=== PATIENT | male | born 2000 | race Caucasian/White ===

== ENCOUNTER 2019-04-13 19:04 | Emergency (ER) | payer OTHER ==
[2019-04-13 19:31] VITALS: BP 132/63
[2019-04-13] MEDS ORDERED: Cephalexin CAP* 500 MG PO ONE ×2 (19:49→20:27)
[2019-04-13] MEDS ORDERED: Lidocaine 1% MPF ** 5 ML VIAL INJ ONE (19:49)
--- NOTE | 2019-04-13 20:35 | UC ---
Hand/Wrist HPI - HPI Summary HPI Summary: 19-year-old male comes with a chief complaint of an injury to his right fifth finger. Just prior to arrival he accidentally dropped some weights on the tip of the right fifth finger. Has a laceration and it was wrapped by his corporate trainer. Reports is up-to-date with tetanus. Patient reports he has full range of motion and sensation of the finger. - History Of Current Complaint Chief Complaint: UCUpperExtremity Stated Complaint: FINGER LAC Time Seen by Provider: 04/13/19 19:44 Pain Intensity: 5 - Allergies/Home Medications Allergies/Adverse Reactions: Allergies Allergy/AdvReac Type Severity Reaction Status Date / Time No Known Allergies Allergy Verified 04/13/19 19:30 PMH/Surg Hx/FS Hx/Imm Hx Previously Healthy: Yes - Surgical History Surgical History: None - Family History Known Family History: Positive: Non-Contributory - Social History Alcohol Use: None Substance Use Type: None Smoking Status (MU): Never Smoked Tobacco Review of Systems All Other Systems Reviewed And Are Negative: Yes Constitutional: Positive: Negative Skin: Positive: Other - SEE HPI Eyes: Positive: Negative ENT: Positive: Negative Respiratory: Positive: Negative Cardiovascular: Positive: Negative Gastrointestinal: Positive: Negative Motor: Positive: Negative Neurovascular: Positive: Negative Musculoskeletal: Positive: Negative Neurological/Mental Status: Positive: Negative Psychological: Positive: Negative Is Patient Immunocompromised?: No Physical Exam Triage Information Reviewed: Yes Appearance: Well-Appearing, No Pain Distress, Well-Nourished Vital Signs: Initial Vital Signs Temp 97.9 F 04/13/19 19:25 Pulse 70 04/13/19 19:25 Resp 16 04/13/19 19:25 BP 132/63 04/13/19 19:25 Pulse Ox 100 04/13/19 19:25 Vital Signs Reviewed: Yes Eye Exam: Normal Eyes: Positive: Conjunctiva Clear Neck: Positive: Supple Respiratory: Positive: No respiratory distress Musculoskeletal: Positive: Strength Intact, ROM Intact Neurological: Positive: Alert Psychological: Positive: Age Appropriate Behavior Skin: Positive: Other - Right fifth finger has stellate laceration that does include the fingernail. Fingernails intact in the base of the fingernail is intact. Overall laceration length is approximately 2 cm. It does appear that there is some missing tissue on the very tip of the finger. Normal capillary refill normal sensation finger has full range of motion full-strength. Procedures - Laceration/Wound Repair 1 Location: Other - right fifth finger Description: Stellate - 2 cm in length Anesthesia: 1.0%, Lido Length, Depth and Shape: Irrigated with saline by nursing. Betadine Prep?: No Laceration/Wound Explored: clean Closure: Single Layer - #6 sutures Debridement: none Suture Type: Prolene - 5-0 Hand/Wrist Course/Dx - Course Course Of Treatment: With the injury being a stellate laceration with some missing tissue on the tip I placed 6 sutures to help bring together most of the laceration however there is still an area of the tip that was missing skin. Antibiotic ointment and nonstick dressing was placed by nursing. Patient was given Keflex 500 mg by mouth here in clinic and then we'll have him on Keflex 500 g by mouth 3 times a day. He can call the orthopedic hand specialist tomorrow morning to arrange follow-up with the next 1-2 days. Patient reports is up-to-date on his tetanus. - Differential Dx/Diagnosis Provider Diagnosis: Open fracture of tuft of distal phalanx of finger, Laceration of right little finger with damage to nail Discharge ED - Sign-Out/Discharge Documenting (check all that apply): Patient Departure All imaging exams completed and their final reports reviewed: No - Discharge Plan Condition: Stable Disposition: HOME Prescriptions: Cephalexin CAP* [Keflex CAP*] 500 mg PO TID #28 cap Patient Education Materials: Finger Fracture (ED), Finger Laceration (ED) Referrals: Abdiel Abraham MD [Medical Doctor] - Additional Instructions: FOLLOW UP WITH THE ORTHOPEDIC HAND SPECIALIST. CALL TOMORROW TO ARRANGE FOLLOW UP IN THE NEXT 1-2 DAYS FOR THE OPEN TUFF FRACTURE OF YOUR RIGHT FIFTH FINGER. SUTURES OUT 8-10 DAYS, ORTHOPEDICS WILL DETERMINE THE ACTUAL TIME TO REMOVE THE SUTURES. GET REEVALUATED SOONER IF NOT IMPROVED OR WORSE; SIGNS OF INFECTION OR ANY QUESTIONS OR CONCERNS. - Billing Disposition and Condition Condition: STABLE Disposition: Home
--- NOTE | 2019-04-14 07:28 | UC ---
- Progress Note Progress Note: Patient Name: YADIEL POSADAS Medical Record#: [id number] Ordering Physician: Phi TANG Acct.#: [id number] : 2000 Age: 19 Sex: M Location: [facility] Exam Date: 04/13/191931 ADM Status: DEP ER Order Information: FINGER RIGHT SMALL Accession Number: [id number] CPT: 62832 INDICATION: Crush injury distal phalanx right fifth finger. TECHNIQUE: 3 views of the right fifth finger were obtained. FINDINGS: There is soft tissue swelling and a soft tissue defect adjacent to the distal phalanx. There is a fracture of the tuft of the distal phalanx with slight distraction of 2 small fracture fragments. Joint spaces appear maintained. IMPRESSION: SOFT TISSUE INJURY AND SLIGHTLY DISPLACED FRACTURE OF THE TUFT OF THE DISTAL PHALANX. R0 Preliminary Imaging Read R0 <Electronically signed by Rolf Emanuel MD in OV> 04/14/19704 Dictated By: Rolf Emanuel MD Dictated Date/Time: 04/14/19703 Transcribed Date/Time: 04/14/19703 Copy to: CC:No Primary Care Phys,NOPCP ; Phi TANG; Yadiel Ware MD Imaging - [facility] Imaging - [facility] [address] [place] [address] ph ([phone]) ph ([phone]) ph ([phone]) This report is only to be considered final once signed by the Provider(s) as displayed in the "<Electronically Signed by >" field (s). Absence of a signature indicates the report is in a draft status and still needs to be finalized. In the event this document was created by someone other than the signing Provider, the individual initiating the document will be listed in the "Entered by:" or "Dictated by:" peters. 1 of 1 No change Course/Dx - Diagnoses Provider Diagnoses: Open fracture of tuft of distal phalanx of finger, Laceration of right little finger with damage to nail Discharge ED - Sign-Out/Discharge Documenting (check all that apply): Post-Discharge Follow Up All imaging exams completed and their final reports reviewed: Yes - Discharge Plan Condition: Stable Disposition: HOME Prescriptions: Cephalexin CAP* [Keflex CAP*] 500 mg PO TID #28 cap Patient Education Materials: Finger Fracture (ED), Finger Laceration (ED) Referrals: Abdiel Abraham MD [Medical Doctor] - Additional Instructions: FOLLOW UP WITH THE ORTHOPEDIC HAND SPECIALIST. CALL TOMORROW TO ARRANGE FOLLOW UP IN THE NEXT 1-2 DAYS FOR THE OPEN TUFF FRACTURE OF YOUR RIGHT FIFTH FINGER. SUTURES OUT 8-10 DAYS, ORTHOPEDICS WILL DETERMINE THE ACTUAL TIME TO REMOVE THE SUTURES. GET REEVALUATED SOONER IF NOT IMPROVED OR WORSE; SIGNS OF INFECTION OR ANY QUESTIONS OR CONCERNS. - Billing Disposition and Condition Condition: STABLE Disposition: Home
== END 2019-04-13 20:40 | disposition home or self-care (01) ==
LOC: UCEAST 19:04
DX: S62.636B Displaced fracture of distal phalanx of right little finger, initial encounter for open fracture (principal); S61.316A Laceration without foreign body of right little finger with damage to nail, initial encounter; W04.XXXA Fall while being carried or supported by other persons, initial encounter; Y92.9 Unspecified place or not applicable
CPT/HCPCS: 12001; 73140; 99202; A9270-GY; G0463